=== PATIENT | male | born 1990 | race Caucasian/White ===

== ENCOUNTER 2016-11-01 18:12 | Emergency (ER) | payer OTHER ==
[~2016-11-01] VITALS: Ht 170.2 cm; Wt 83.0 kg
[2016-11-01] MEDS ORDERED: NAPR500T2 PO (18:36)
[2016-11-01 20:42] VITALS: BP 164/84
[2016-11-01] MEDS ORDERED: CYCL10TA PO (21:19)
[2016-11-01] MEDS ORDERED: IBUP600T26 PO (21:19)
[2016-11-01] MEDS ORDERED: CYCLOBENZAPRINE 10 MG TAB PO ONE (21:30)
== END 2016-11-01 21:41 | disposition home or self-care (01) ==
LOC: M ED 19:50
DX: S39.012A Strain of muscle, fascia and tendon of lower back, initial encounter (principal); X50.9XXA Other and unspecified overexertion or strenuous movements or postures, initial encounter; Y92.89 Other specified places as the place of occurrence of the external cause; Y93.89 Activity, other specified; Y99.0 Civilian activity done for income or pay